=== PATIENT | female | born 1980 | race Caucasian/White ===

== ENCOUNTER → 2017-04-12 | Outpatient (CLI) | payer BC | END | disposition disaster alternative care site (69) | LOC: GRAD 10:05 | DX: H46.8 Other optic neuritis (principal) ==

== ENCOUNTER → 2017-04-13 | Outpatient (CLI) | payer BC | END | disposition disaster alternative care site (69) | LOC: GRAD 14:08 | DX: H46.8 Other optic neuritis (principal); Z53.8 Procedure and treatment not carried out for other reasons ==